=== PATIENT | male | born 1995 | race African-American/Black ===

== ENCOUNTER 2016-12-28 10:21 | Emergency (ER) | payer OTHER ==
[~2016-12-28] VITALS: Ht 185.4 cm; Wt 72.4 kg
[~2016-12-28 10:21] MED LIST: MOTRIN800 MG PO; NEBULIZER MC; PREDNISONE20 MG PO; TESSALON PERLE100 MG PO; VENTOLIN HFA18 GM IH; ZITHROMAX Z-PA250 MG PO
[2016-12-28 10:47] LABS: HEMATOCRIT 44.6 % (38.0-50.0); MCH 30.1 PG (29.0-34.0); MCHC 34.3 G/DL (30.0-36.0); MCV 87.6 FL (86-99); RBC DIS.WIDTH-CV 11.7 % (11.8-14.6); RBC DIS.WIDTH-SD 37.8 % (39-53); RED BLOOD COUNT 5.09 M/uL (4.00-5.50)
[2016-12-28 10:53] LABS: MEAN PLAT.VOLUME 11.1 uM^3 (9.0-12.4); PLATELET COUNT 215 K/uL (156-360)
[2016-12-28 10:57] LABS: CHLORIDE 105 mEq/L (99-109); POTASSIUM 4.1 mEq/L (3.7-5.4); SODIUM 139 mEq/L (136-147)
[2016-12-28 10:58] LABS: GLUCOSE 147 mg/dL (70-99)
[2016-12-28 11:00] LABS: ANION GAP 13 MEQ/L (2-14)
[2016-12-28 11:02] LABS: GFR ESTIMATE (CALCULATED) > 59 mL/min/
[2016-12-28 11:03] LABS: UREA NITROGEN (BUN) 8 mg/dL (9-23)
[2016-12-28 11:30] LABS: PLAT.SUFFICIENCY ADEQUATE
[2016-12-28] MEDS ORDERED: PREDNISONE20 MG PO (11:57)
[2016-12-28] MEDS ORDERED: TESSALON PERLE100 MG PO (11:58)
[2016-12-28 12:12] VITALS: BP 128/77
[2016-12-28] MEDS ORDERED: VENTOLIN HFA18 GM IH (12:24)
== END 2016-12-28 12:12 | disposition home or self-care (01) ==
LOC: EME 10:21
DX: J06.9 Acute upper respiratory infection, unspecified (principal); J45.909 Unspecified asthma, uncomplicated
CPT/HCPCS: 71020; 80048; 85027; 99281; 99285